=== PATIENT | female | born 1975 | race Caucasian/White ===

== ENCOUNTER → 2020-10-23 10:26 | Outpatient (BNVA) | payer OTHER, SELFPAY | PROVIDERS: PCP Hospitalist; Visit Provider Nurse Practitioner Psychiatric/Mental Health ==

== ENCOUNTER 2020-10-24 12:31 | Emergency (ER) | payer OTHER, SELFPAY ==
[2020-10-24 12:38] VITALS: BP 121/49; PULSE 74; RESP 20; TEMP 36.4; O2SAT 99; BMI 26.6
--- NOTE | 2020-10-24 14:37 | ED.PSYCH ---
HPI - Psych General Chief Complaint: ETOH/Substance Use Stated Complaint: crisis Time Seen by Provider: 10/24/20 14:24 Source: patient Mode of arrival: ambulatory Limitations: no limitations History of Present Illness HPI Narrative: 45-year-old female who presents emergency department fasting evaluation for anxiety and depression. Patient states that she has anxiety and depression for at least 20 years. She states that recently her depression and anxiety has gotten worse to the point where she wants to get help. She states that she has a history bingeing on crack cocaine and she believes that this is made her psychiatric conditions worse. She states that she used 400 dollars of crack cocaine yesterday from noon to will 9:00 p.m.. She states that 2 days prior she smoked marijuana. The patient states that she has been in 7 rehab and continues to struggle with sobriety. She states that she just got out of rehab 3 weeks ago. She denies being suicidal or homicidal. Related Data Allergies Allergy/AdvReac Type Severity Reaction Status Date / Time gabapentin Allergy Swelling Verified 10/24/20 14:36 Review of Systems Review of Systems: Yes all other systems are reviewed and are negative [facility] Past Medical History [facility] Narrative: Past medical history: Depression, anxiety, cocaine use disorder. surgical history: None social history: She smokes 1/2 pack of cigarettes per day times 30 years, she denies alcohol use, she binges on crack cocaine she last used 400 dollars of cocaine yesterday from noon to 9:00 p.m.. Social History Social History Use of substances other than those prescribed or required for medical reasons: Yes Substance Use Type: Crack/Cocaine Advance Directives: Yes Advance Directives Information Provided: Yes Advance Directives on File: No Physical Exam Vital Signs: Vital Signs: Last Vital Signs Temp 97.6 F 10/24/20 12:38 Pulse 74 10/24/20 12:38 Resp 18 10/24/20 15:50 BP 121/49 L 10/24/20 12:38 Pulse Ox 99 10/24/20 12:38 Body Mass Index 26.6 Const: General: cooperative and healthy appearing Orientation/consciousness: oriented to person and oriented to place Limitations: no limitations HENMT: Head: Yes normal to inspection, Yes normocephalic and Yes atraumatic Ears: external ears normal General nose exam: Normal external nose present Face and sinus: Yes normal facial exam Mouth: Normal oral and palatal mucosa present Throat: Yes posterior oropharynx normal Eyes: Periorbital: periorbital findings normal Eyelids: Yes eyelids normal Conjunctivae: conjunctivae normal Sclerae: sclerae normal Corneas: corneas normal Pupils: Equal, round and reactive pupils present Direct Ophthalmoscopy: normal light reflex Neck: Neck: Yes full ROM, Yes no lymphadenopathy, Yes no meningeal signs, Yes trachea midline and Yes supple Chest: Chest palpation & inspection: normal inspection of the chest and normal palpation of entire chest wall Resp: Effort & Inspection: normal respiratory effort and able to speak in complete sentences Auscultation: clear to auscultation bilaterally Cardio: Rate: regular rate Rhythm: regular rhythm Heart sounds: S1 normal heart sound present, S2 normal heart sound present and no murmurs GI: Inspection: Yes normal to inspection Palpation (GI): Soft to palpation, nontender, no guarding, not rigid and No hepatosplenomegaly present : General: Yes no CVA tenderness Back/Spine/Pelvis: Back: no CVA tenderness Cervical Spine: normal cervical lordosis Thoracic/Lumbar Spine: thoracic and lumbar spine normal to inspection Skin: Lesions: no lesions Rashes: no rashes Wounds: no wounds Neuro: General: oriented to person, oriented to place and no meningeal signs Cranial nerves: Yes CN's II-XII intact bilaterally and Yes Equal, round and reactive pupils present Cognition (Neuro): normal cognition Motor exam (neuro): 5/5 motor strength present throughout Extrem: General: Yes normal to inspection and Yes full ROM Psych: Appearance: well kempt Mental Status: mental status grossly normal Speech and movement: Normal speech and movement present Affect: Anxious affect present Attitude: cooperative Thought process: Normal thought process present Thought content: Normal thought content present Course Course Course Narrative: 45-year-old female with a history of depression, anxiety and cocaine use disorder who presents emergency department for evaluation of depression anxiety. The patient last used crack cocaine yesterday from noon until 9:00 p.m.. She denies being suicidal. Vital signs were unremarkable. Physical examination was unremarkable. I did order laboratory evaluation includes CBC CMP, alcohol level, drug screen, and urine test. The patient was given Ativan 2 mg orally for her anxiety. was unremarkable. 1620 : The patient's laboratory evaluation was unremarkable. Urine tox screen was positive for cocaine and marijuana. The patient was evaluated by our care team and the care team his given the patient outpatient options for partial outpatient care /dual diagnosis care. The patient is not homicidal or suicidal and is safe to be discharged. The patient was given verbal and printed instructions prior to discharge. The patient was advised to follow-up with their PCP in 2 days and to return to the emergency department if their symptoms get worse or if they develop any new symptoms that are concerning to them MDM - Psych Lab Data Result diagrams: 10/24/20 15:14 10/24/20 15:14 Labs: Lab Results 10/24/20 10/24/20 10/24/20 Range/Units 15:14 15:14 15:14 WBC 10.4 (4.8-10.8) X10*3/uL RBC 4.96 (4.20-5.50) X10*6/uL Hgb 14.6 (12.0-16.0) g/dl Hct 42.8 (37-47) % MCV 86.3 (80-98) fL MCH 29.4 (27.0-33.0) pg MCHC 34.1 (31.0-35.0) g/dl RDW 12.8 (11.0-16.0) % Plt Count 346 (160-400) X10*3/uL MPV 8.5 L (9.4-12.3) fL Immature Gran % (Auto) 0.3 (0.0-0.4) % Neut % (Auto) 56.6 (45-73) % Lymph % (Auto) 33.8 (20-40) % [place] % (Auto) 6.5 (2-11) % Eos % (Auto) 2.1 (0-4) % Baso % (Auto) 0.7 (0-2) % Lymph # (Auto) 3.5 (1.2-4.9) X10*3/uL [place] # (Auto) 0.7 (0.1-1.2) X10*3/uL Eos # (Auto) 0.2 (0.0-0.4) X10*3/uL Baso # (Auto) 0.1 (0.0-0.2) X10*3/uL Abs Immat Gran (auto) 0.03 (0.00-0.03) X10*3/uL Absolute Neuts (auto) 5.9 (2.0-8.3) X10*3/uL Absolute Nucleated RBC 0.000 (0.0-0.012) X10*3/uL Nucleated RBC % (auto) 0.0 (0.0-0.2) /100WBC Sodium 137 (135-145) mmol/L Potassium 5.0 (3.3-5.1) mmol/L Chloride 107 (96-108) mmol/L Carbon Dioxide 19 L (22-29) mmol/L Anion Gap 16 (12-20) BUN 13 (9-16) mg/dL Creatinine 0.91 (0.5-1.4) mg/dL Estim Creat Clear Calc 75.1 Estimated GFR > 60 Random Glucose 106 (60-115) mg/dL Calcium 9.3 (8.4-10.2) mg/dL Total Bilirubin 0.4 (0.0-1.0) mg/dL AST 14 (5-31) U/L ALT 19 (0-31) U/L Alkaline Phosphatase 83 (39-117) U/L Total Protein 7.5 (6.5-8.0) g/dL Albumin 4.5 (3.5-5.0) g/dL Urine Opiates Screen Not Detected (Not Detect) Ur Barbiturates Screen Not Detected (Not Detect) Ur Phencyclidine Scrn Not Detected (Not Detect) Ur Amphetamines Screen Not Detected (Not Detect) U Benzodiazepines Scrn Not Detected (Not Detect) Urine Cocaine Screen POSITIVE H (Not Detect) U Marijuana (THC) Screen POSITIVE H (Not Detect) Ethyl Alcohol mg/dL 10/24/20 Range/Units 15:14 WBC (4.8-10.8) X10*3/uL RBC (4.20-5.50) X10*6/uL Hgb (12.0-16.0) g/dl Hct (37-47) % MCV (80-98) fL MCH (27.0-33.0) pg MCHC (31.0-35.0) g/dl RDW (11.0-16.0) % Plt Count (160-400) X10*3/uL MPV (9.4-12.3) fL Immature Gran % (Auto) (0.0-0.4) % Neut % (Auto) (45-73) % Lymph % (Auto) (20-40) % [place] % (Auto) (2-11) % Eos % (Auto) (0-4) % Baso % (Auto) (0-2) % Lymph # (Auto) (1.2-4.9) X10*3/uL [place] # (Auto) (0.1-1.2) X10*3/uL Eos # (Auto) (0.0-0.4) X10*3/uL Baso # (Auto) (0.0-0.2) X10*3/uL Abs Immat Gran (auto) (0.00-0.03) X10*3/uL Absolute Neuts (auto) (2.0-8.3) X10*3/uL Absolute Nucleated RBC (0.0-0.012) X10*3/uL Nucleated RBC % (auto) (0.0-0.2) /100WBC Sodium (135-145) mmol/L Potassium (3.3-5.1) mmol/L Chloride (96-108) mmol/L Carbon Dioxide (22-29) mmol/L Anion Gap (12-20) BUN (9-16) mg/dL Creatinine (0.5-1.4) mg/dL Estim Creat Clear Calc Estimated GFR Random Glucose (60-115) mg/dL Calcium (8.4-10.2) mg/dL Total Bilirubin (0.0-1.0) mg/dL AST (5-31) U/L ALT (0-31) U/L Alkaline Phosphatase (39-117) U/L Total Protein (6.5-8.0) g/dL Albumin (3.5-5.0) g/dL Urine Opiates Screen (Not Detect) Ur Barbiturates Screen (Not Detect) Ur Phencyclidine Scrn (Not Detect) Ur Amphetamines Screen (Not Detect) U Benzodiazepines Scrn (Not Detect) Urine Cocaine Screen (Not Detect) U Marijuana (THC) Screen (Not Detect) Ethyl Alcohol < 10 mg/dL Discharge Plan Discharge Clinical Impression: Cocaine use, Anxiety Depression Qualifiers: Depression Type: unspecified Qualified Code(s): F32.9 - Major depressive disorder, single episode, unspecified Patient Disposition: Home, Self-Care Additional Instructions: You were evaluated by our Care Team. You should consider getting into wanted partial out patient programs to help you with your cocaine use disorder, your depression and your anxiety. Follow-up with your doctor in 2 days. Please return to the emergency department if your symptoms get worse or if you develop any symptoms that are concerning to you.
[2020-10-24 15:23] LABS: MANUAL DIFF FLAG NO
[2020-10-24 15:26] LABS: Basophils Absolute Auto 0.1 X10*3/uL (0.0-0.2); Basophils Percent Auto 0.7 % (0-2); Eosinophils Absolute Auto 0.2 X10*3/uL (0.0-0.4); Eosinophils Percent Auto 2.1 % (0-4); Hematocrit 42.8 % (37-47); Hemoglobin 14.6 g/dl (12.0-16.0); Imm Gran Abs Auto 0.03 X10*3/uL (0.00-0.03); Imm Gran Pct Auto 0.3 % (0.0-0.4); Lymphocytes Absolute Auto 3.5 X10*3/uL (1.2-4.9); Lymphocytes Percent Auto 33.8 % (20-40); Mean Corpuscular HGB Conc 34.1 g/dl (31.0-35.0); Mean Corpuscular Hemoglobin 29.4 pg (27.0-33.0); Mean Corpuscular Volume 86.3 fL (80-98); Mean Platelet Volume 8.5 fL (9.4-12.3); Monocytes Absolute Auto 0.7 X10*3/uL (0.1-1.2); Monocytes Percent Auto 6.5 % (2-11); Neutrophils Absolute Auto 5.9 X10*3/uL (2.0-8.3); Neutrophils Percent Auto 56.6 % (45-73); Platelet Count 346 X10*3/uL (160-400); Red Blood Count 4.96 X10*6/uL (4.20-5.50); Red Cell Distribution Width 12.8 % (11.0-16.0); White Blood Count 10.4 X10*3/uL (4.8-10.8)
[2020-10-24 15:50] VITALS: RESP 18
[2020-10-24 15:51] LABS: Ethanol < 10 mg/dL
[2020-10-24 15:53] LABS: Alanine Aminotransferase 19 U/L (0-31); Albumin Level 4.5 g/dL (3.5-5.0); Alkaline Phosphatase 83 U/L (39-117); Anion Gap 16 (12-20); Aspartate Amino Transferase 14 U/L (5-31); Bilirubin Total 0.4 mg/dL (0.0-1.0); Blood Urea Nitrogen 13 mg/dL (9-16); Calcium 9.3 mg/dL (8.4-10.2); Carbon Dioxide 19 mmol/L (22-29); Chloride 107 mmol/L (96-108); Creatinine Clr Calc Pharmacy 75.1; Estimated Glomerular Filt Rate > 60; Glucose Random 106 mg/dL (60-115); Sodium 137 mmol/L (135-145); Total Protein 7.5 g/dL (6.5-8.0)
[2020-10-24 15:54] LABS: Amphetamine Screen Urine Not Detected (Not Detect); Barbiturates, Urine Not Detected (Not Detect); Benzodiazepines Screen Urine Not Detected (Not Detect); Cannabinoid Screen Urine POSITIVE (Not Detect); Cocaine Screen Urine POSITIVE (Not Detect); Opiate Screen Urine Not Detected (Not Detect); Phencyclidine Screen Urine Not Detected (Not Detect)
== END 2020-10-24 16:34 | disposition home or self-care (01) ==
PROVIDERS: Emergency Provider Emergency Medicine Emergency Medical Services; PCP Internal Medicine
DX: F41.9 Anxiety disorder, unspecified (principal); F32.9 Major depressive disorder, single episode, unspecified; F14.90 Cocaine use, unspecified, uncomplicated; F12.90 Cannabis use, unspecified, uncomplicated; F17.210 Nicotine dependence, cigarettes, uncomplicated
CPT/HCPCS: 36415; 80053; 80307; 82077; 85025; 99285

== ENCOUNTER 2020-10-27 16:22 | Inpatient (IN) | payer OTHER, SELFPAY ==
[2020-10-27 16:41] VITALS: BP 160/82; PULSE 56; RESP 16; TEMP 36; O2SAT 100; BMI 26.6
--- NOTE | 2020-10-27 18:17 | ED.ANXIETY ---
HPI - Anxiety General Chief Complaint: Anxiety <Claudia Diehl MD - Last Filed: 10/27/20 20:19> Stated Complaint: Depression <Claudia Diehl MD - Last Filed: 10/27/20 20:19> Time Seen by Provider: 10/27/20 18:16 <Claudia Diehl MD - Last Filed: 10/27/20 20:19> Source: patient <Claudia Diehl MD - Last Filed: 10/27/20 20:19> Mode of arrival: ambulatory <Claudia Diehl MD - Last Filed: 10/27/20 20:19> Limitations: no limitations <Claudia Deihl MD - Last Filed: 10/27/20 20:19> History of Present Illness HPI narrative: 45-year-old female with history of anxiety/depression ( chronic for at least 20 years), patient also has history of multiple substance abuse by smoking only, patient had multiple detoxification from drugs in the past but usually go back to drug abuse which make her psychiatric condition is worse, patient lives with her , decline any current plan for SI or HI. Patient admitted that she does not comply well with the rehab programs and do not attend the meetings. <Claudia Diehl MD - Last Filed: 10/27/20 20:19> Related Data Home Medications: Home Medications Medication Instructions Recorded Confirmed buspirone 1 tab PO BID 10/27/20 10/27/20 clonidine HCl 1 tab PO BID PRN 10/27/20 10/27/20 fluoxetine 2 cap PO QAM 10/27/20 10/27/20 hydroxyzine pamoate 50 mg PO TID 10/27/20 10/27/20 lorazepam 1 tab PO BID PRN 10/27/20 10/27/20 melatonin 10 mg PO BEDTIME PRN 10/27/20 10/27/20 naltrexone 1 tab PO QAM 10/27/20 10/27/20 olanzapine 10 mg PO BEDTIME 10/27/20 10/27/20 trazodone 1 - 2 tab PO BEDTIME PRN 10/27/20 10/27/20 <Claudia Diehl MD - Last Filed: 10/27/20 20:19> Allergies/Adverse Reactions: Allergies Allergy/AdvReac Type Severity Reaction Status Date / Time gabapentin Allergy Swelling Verified 10/24/20 14:36 <Claudia Diehl MD - Last Filed: 10/27/20 20:19> Review of Systems Review of Systems: All other systems are reviewed and are negative Constitutional: Reports as per HPI and Reports no additional constitutional complaints Eyes: Reports as per HPI and Reports no additional eye complaints Reports system reviewed and no additional complaints, except as documented Cardiovascular: Reports as per HPI and Reports no additional cardiovascular complaints Respiratory: Reports as per HPI and Reports no additional respiratory complaints Gastrointestinal: Reports as per HPI and Reports no additional gastrointestinal complaints Genitourinary: Reports no additional female genitourinary complaints Musculoskeletal: Reports no additional musculoskeletal complaints Skin/Breast: Reports system reviewed and no additional complaints, except as docu Psychiatric: Reports no additional psychiatric complaints Endocrine: Reports no additional endocrine complaints Hematologic/Lymphatic: Reports no additional hematologic/lymphatic complaints Allergic/Immunologic: Reports no additional allergic/immunologic complaints Reports system reviewed and no additional complaints, except as documented and Reports Abnormal speech present <Claudia Diehl MD - Last Filed: 10/27/20 20:19> [facility] Social History Social History: Social History Alcohol intake: never Patient Tobacco Use Status: Current everyday Tobacco user Use of substances other than those prescribed or required for medical reasons: Yes Substance Use Type: Crack/Cocaine and Marijuana Advance Directives: No Advance Directives Information Provided: No Guardian: No Patient : No <Claudia Diehl MD - Last Filed: 10/27/20 20:19> Physical Exam Vital Signs: Vital Signs: Last Vital Signs Temp 98.7 F 10/27/20 18:51 Pulse 66 10/27/20 21:29 Resp 18 10/27/20 21:29 BP 110/48 L 10/27/20 21:29 Pulse Ox 97 10/27/20 21:29 Body Mass Index 26.6 vital signs have been reviewed as appeared to be correct. Blood pressure normal. Heart rate normal. Respiration rate normal. Temperature normal. Oxygen saturation normal. <Claudia Diehl MD - Last Filed: 10/27/20 20:19> Vital Signs: Last Vital Signs Temp 98.7 F 10/27/20 18:51 Pulse 66 10/27/20 21:29 Resp 18 10/27/20 21:29 BP 110/48 L 10/27/20 21:29 Pulse Ox 97 10/27/20 21:29 Body Mass Index 26.6 <Carolee Mojicaie - Last Filed: 10/28/20 06:48> Appearance: Alert. Oriented X3. No acute distress. Head: Normal external exam. Normocephalic. Atraumatic. No Azul signs noted. No raccoon eyes noted Eyes: PERRLA. EOMI. Conjunctiva and sclera normal. Eyelids normal. ENT: TM's Normal. Pharynx normal. Uvula midline. Moist mucous membranes. No trismus noted. No drooling noted. No muffled voice noted. Neck: Normal inspection. Neck supple. FROM. No adenopathy. Thyroid Normal. No meningeal signs. No neck mass noted. CVS: Normal heart rate and rhythm. Heart sound normal. No murmurs noted. Pulses normal throughout. Respiratory: No respiratory distress. Painless inspiration. Breath sounds normal. No wheezes/rales/rhonchi noted. Chest nontender. No accessory muscle usage noted or decreased air movement noted. Abdomen: Soft and nontender. Bowel sounds normal in all 4 quadrants. No distention noted. No organomegaly noted. No visible injury noted. Back: No CVA tenderness. Full range of motion noted. Skin: Skin warm and dry. Normal skin color. Normal skin turgor. No rashes/lesions/lacerations noted. Extremities: No lower extremity edema. Extremities exhibit normal range of motion. Extremities nontender. Neuro: Oriented X 3. No motor deficit. No sensory deficit. Reflexes normal. Patient Appearance: Appropriate Patient Orientation: Person, Place, Time and Situation Level of Consciousness: Awake, Appropriate and Alert Patient Behavior: Talkative, Cooperative. Mood Description: Depressed. Affect Description: Flat. Patient Cognition Impaired: No Ability to Follow Directions: Good Speech Pattern: Spontaneous Speech Memory Description: Intact Hallucinations: Not present. Delusions: Not Present Thought Process: Logical. Thought Content: Unremarkable Depressive Symptoms: Increased anxiety. Judgement: Fair <Claudia Diehl MD - Last Filed: 10/27/20 20:19> Course Course Course Narrative: Assessment and plan. 45-year-old female history of anxiety / depression. Awaiting for complaint [facility] evaluation who came the patient on observation. <Claudia Diehl MD - Last Filed: 10/27/20 20:19> Physician observation continued. Patient with no acute events overnight, VS stable. Voluntary inpatient bed search. labs stable.. Patient resting comfortably, NAD, lungs clear, CV RRR, Neuro intact. Pending placement. THIS NOTE IS WRITTEN IN ADDENDUM 648am 10/28/20 <Carolee Gaines DO - Last Filed: 10/28/20 06:48> Reevaluation(s) Reevaluation #1: Physician observation started at 20:15 . Patient placed in physician observation because the patient needed more time for [facility] evaluation and and final disposition, patient's vital sign were stable, patient is alert and oriented , neuro exam unchanged, unremarkable rest of physical exam. <Claudia Diehl MD - Last Filed: 10/27/20 20:19> Time: 20:15 <Claudia Diehl MD - Last Filed: 10/27/20 20:19> MDM - Anxiety Lab Data Attestation: I reviewed the patient's lab results. <Claudia Diehl MD - Last Filed: 10/27/20 20:19> Labs: Lab Results 10/27/20 10/27/20 10/27/20 Range/Units 18:51 18:58 18:58 Urine Color YELLOW Urine Appearance CLEAR Urine pH 5.5 (5.0-8.0) Ur Specific [place] 1.010 (1.005-1.025) Urine Protein NEG (NEG-TRACE) MG/DL Urine Glucose (UA) NEG (NEG) MG/DL Urine Ketones NEG (NEG) MG/DL Urine Blood NEG (NEG) Urine Nitrite NEG (NEG) Ur Leukocyte Esterase NEG (NEG) Urine Test NEGATIVE (NEGATIVE) Urine Opiates Screen (Not Detect) Ur Barbiturates Screen (Not Detect) Ur Phencyclidine Scrn (Not Detect) Ur Amphetamines Screen (Not Detect) U Benzodiazepines Scrn (Not Detect) Urine Cocaine Screen (Not Detect) U Marijuana (THC) Screen (Not Detect) Ethyl Alcohol < 10 mg/dL COVID-19 (KIRSTIE) (Negative) COVID-19 Clin Com 10/27/20 10/28/20 Range/Units 18:58 00:27 Urine Color Urine Appearance Urine pH (5.0-8.0) Ur Specific [place] (1.005-1.025) Urine Protein (NEG-TRACE) MG/DL Urine Glucose (UA) (NEG) MG/DL Urine Ketones (NEG) MG/DL Urine Blood (NEG) Urine Nitrite (NEG) Ur Leukocyte Esterase (NEG) Urine Test (NEGATIVE) Urine Opiates Screen Not Detected (Not Detect) Ur Barbiturates Screen Not Detected (Not Detect) Ur Phencyclidine Scrn Not Detected (Not Detect) Ur Amphetamines Screen Not Detected (Not Detect) U Benzodiazepines Scrn Not Detected (Not Detect) Urine Cocaine Screen Not Detected (Not Detect) U Marijuana (THC) Screen POSITIVE H (Not Detect) Ethyl Alcohol mg/dL COVID-19 (KIRSTIE) Negative (Negative) COVID-Counselytics See Note <Claudia Diehl MD - Last Filed: 10/27/20 20:19> Lab Results 10/27/20 10/27/20 10/27/20 Range/Units 18:51 18:58 18:58 Urine Color YELLOW Urine Appearance CLEAR Urine pH 5.5 (5.0-8.0) Ur Specific [place] 1.010 (1.005-1.025) Urine Protein NEG (NEG-TRACE) MG/DL Urine Glucose (UA) NEG (NEG) MG/DL Urine Ketones NEG (NEG) MG/DL Urine Blood NEG (NEG) Urine Nitrite NEG (NEG) Ur Leukocyte Esterase NEG (NEG) Urine Test NEGATIVE (NEGATIVE) Urine Opiates Screen (Not Detect) Ur Barbiturates Screen (Not Detect) Ur Phencyclidine Scrn (Not Detect) Ur Amphetamines Screen (Not Detect) U Benzodiazepines Scrn (Not Detect) Urine Cocaine Screen (Not Detect) U Marijuana (THC) Screen (Not Detect) Ethyl Alcohol < 10 mg/dL COVID-19 (KIRSTIE) (Negative) COVID-Counselytics 10/27/20 10/28/20 Range/Units 18:58 00:27 Urine Color Urine Appearance Urine pH (5.0-8.0) Ur Specific [place] (1.005-1.025) Urine Protein (NEG-TRACE) MG/DL Urine Glucose (UA) (NEG) MG/DL Urine Ketones (NEG) MG/DL Urine Blood (NEG) Urine Nitrite (NEG) Ur Leukocyte Esterase (NEG) Urine Test (NEGATIVE) Urine Opiates Screen Not Detected (Not Detect) Ur Barbiturates Screen Not Detected (Not Detect) Ur Phencyclidine Scrn Not Detected (Not Detect) Ur Amphetamines Screen Not Detected (Not Detect) U Benzodiazepines Scrn Not Detected (Not Detect) Urine Cocaine Screen Not Detected (Not Detect) U Marijuana (THC) Screen POSITIVE H (Not Detect) Ethyl Alcohol mg/dL COVID-19 (KIRSTIE) Negative (Negative) COVID-19 Clin Com See Note <Carolee Gaines DO - Last Filed: 10/28/20 06:48> Discharge Plan Discharge Clinical Impression: Acute anxiety, Substance abuse <Claudia Diehl MD - Last Filed: 10/27/20 20:19> Prescriptions: No Action clonidine HCl 0.1 mg tablet 1 tab PO BID PRN (Reason: Blood Pressure) RF: 0 trazodone 50 mg tablet 1 - 2 tab PO BEDTIME PRN (Reason: Sleep) RF: 0 naltrexone 50 mg tablet 1 tab PO QAM RF: 0 lorazepam 1 mg tablet 1 tab PO BID PRN (Reason: Anxiety) RF: 0 fluoxetine 20 mg capsule 2 cap PO QAM RF: 0 olanzapine 20 mg tablet 10 mg PO BEDTIME RF: 0 buspirone 15 mg tablet 1 tab PO BID RF: 0 hydroxyzine pamoate 25 mg capsule 50 mg PO TID RF: 0 melatonin 10 mg Tablet 10 mg PO BEDTIME PRN (Reason: Sleep) RF: 0 <Claudia Diehl MD - Last Filed: 10/27/20 20:19>
[2020-10-27 18:51] VITALS: BP 107/56; PULSE 58; RESP 18; TEMP 37.1; O2SAT 99
[2020-10-27 19:10] LABS: Glucose Urine UA NEG (NEG); Leukocyte Esterase Urine NEG (NEG); Nitrite Urine NEG (NEG); PH 5.5 (5.0-8.0); Urine Blood NEG (NEG); Urine Ketones NEG (NEG); Urine Protein NEG (NEG-TRACE)
[2020-10-27 19:12] LABS: Appearance Urine CLEAR; Color Urine YELLOW; UPreg QC Valid YES; Urine Pregnancy NEGATIVE (NEGATIVE)
[2020-10-27 19:22] LABS: Ethanol < 10 mg/dL
[2020-10-27 19:34] LABS: Amphetamine Screen Urine Not Detected (Not Detect); Barbiturates, Urine Not Detected (Not Detect); Benzodiazepines Screen Urine Not Detected (Not Detect); Cannabinoid Screen Urine POSITIVE (Not Detect); Cocaine Screen Urine Not Detected (Not Detect); Opiate Screen Urine Not Detected (Not Detect); Phencyclidine Screen Urine Not Detected (Not Detect)
--- NOTE | 2020-10-27 20:11 | PC.NURSE ---
CARE team at bedside.
--- NOTE | 2020-10-27 20:43 | PC.NURSE ---
Pt changed over into hospital attire w/ security at bedside. Pt tearful but very cooperative. Offered and accepted sandwich, gingerale, and snack. Med rec completed w/ list provided by pt.
[2020-10-27] MEDS: traZODone HCL 50 MG TABLET PO (21:24)
[2020-10-27] MEDS: busPIRone HCl 5 MG TABLET 15 MG PO (21:25)
[2020-10-27] MEDS: hydrOXYzine HCL 25 MG TABLET 50 MG PO (21:25)
[2020-10-27] MEDS: Melatonin 3 MG TABLET 9 MG PO (21:26)
[2020-10-27] MEDS: OLANZapine 10 MG TABLET PO (21:26)
[2020-10-27] MEDS: LORazepam 1 MG TABLET PO (21:26)
[2020-10-27 21:29] VITALS: BP 110/48; PULSE 66; RESP 18; O2SAT 97
--- NOTE | 2020-10-27 21:43 | PC.NURSE ---
Pt family brought 2 bags of belongings. Placed in locker 10 w/ pts original belongings. Pt is calm, cooperative, pleasant. Given PM medications w/out difficulty.
--- NOTE | 2020-10-27 22:58 | MHC.CARE ---
CARE team evaluation completed by CARE team. Disposition is for voluntary inpatient psychiatric admission and is not considered an imminent risk requiring a Section 12a for containment at this time. Pt will remain in ED pending facility placement or change in disposition and plan of care. If pt requests to leave prior to placement, it is at the discretion of the ED physician whether pt may be discharged without CARE team re-assessment/consultation. Assessment is available for review in EMR.
[2020-10-28 00:52] LABS: COVID-19 Test Negative (Negative)
--- NOTE | 2020-10-28 07:00 | PC.NURSE ---
received report from Elder escalante pt is currently asleep
[2020-10-28] MEDS: busPIRone HCl 5 MG TABLET 15 MG PO ×2 (08:25→21:51)
[2020-10-28] MEDS: FLUoxetine HCl 20 MG CAPSULE 40 MG PO (08:25)
[2020-10-28] MEDS: hydrOXYzine HCL 25 MG TABLET 50 MG PO ×3 (08:25→21:51)
[2020-10-28 08:26] VITALS: BP 102/43; PULSE 68; RESP 18; O2SAT 100
--- NOTE | 2020-10-28 08:30 | PC.NURSE ---
pt given her breakfast and morning medications, pt denies si/hi at this time, calm and cooperative
[2020-10-28] MEDS: Naltrexone HCl 50 MG TABLET PO (08:41)
[2020-10-28 13:12] VITALS: BP 116/56; PULSE 72; RESP 16; O2SAT 98
--- NOTE | 2020-10-28 16:22 | PC.NURSE ---
called m5 to give report, not ready at this time awaiting a call back
--- NOTE | 2020-10-28 17:13 | PC.NURSE ---
Report given to psych. Requesting chemistry before transfer.
[2020-10-28 18:07] LABS: Alanine Aminotransferase 12 U/L (0-31); Albumin Level 3.9 g/dL (3.5-5.0); Alkaline Phosphatase 70 U/L (39-117); Anion Gap 15 (12-20); Aspartate Amino Transferase 13 U/L (5-31); Bilirubin Total 0.5 mg/dL (0.0-1.0); Blood Urea Nitrogen 14 mg/dL (9-16); Calcium 9.1 mg/dL (8.4-10.2); Carbon Dioxide 22 mmol/L (22-29); Chloride 107 mmol/L (96-108); Creatinine Clr Calc Pharmacy 78.5; Estimated Glomerular Filt Rate > 60; Glucose Random 86 mg/dL (60-115); Potassium 4.7 mmol/L (3.3-5.1); Sodium 139 mmol/L (135-145); Total Protein 6.6 g/dL (6.5-8.0)
[2020-10-28 20:00] VITALS: BP 111/58; PULSE 67; RESP 18; TEMP 36.1; O2SAT 98
[2020-10-28] MEDS: OLANZapine 10 MG TABLET PO (21:50)
[2020-10-28 21:51] VITALS: BP 111/58; PULSE 67
[2020-10-28] MEDS: cloNIDine HCL 0.1 MG TABLET PO (21:51)
[2020-10-28] MEDS: Melatonin 3 MG TABLET 9 MG PO (21:52)
[2020-10-28] MEDS: traZODone HCL 100 MG TABLET PO (21:52)
[2020-10-28] MEDS: LORazepam 1 MG TABLET PO (21:52)
--- NOTE | 2020-10-28 22:24 | PC.ADMIT ---
Pt is a 45 year old female who came into the ED for increased depression and anxiety, and reports recent relapse on crack cocaine 4 days ago, reports since then. UDS in the ED positive for THC. Pt was tearful upon admission, this is her first [facility] admission, but has previously participated in substance abuse treatment. Pt has a very close knit relationship with her family. Her daughter recently moved out of the family home and moved in her boyfriend. Her son is going into the in November. She lives at home with her , son, brother in law, and 's best friend. Pt denies SI/HI/VH/AH, and is able to contract for safety while on the unit. Pt is on a CV and 15 minute safety checks.
[2020-10-29] MEDS: Naltrexone HCl 50 MG TABLET PO (10:36)
[2020-10-29] MEDS: busPIRone HCl 5 MG TABLET 15 MG PO ×2 (10:36→20:30)
[2020-10-29] MEDS: FLUoxetine HCl 20 MG CAPSULE 40 MG PO (10:36)
[2020-10-29] MEDS: hydrOXYzine HCL 25 MG TABLET 50 MG PO ×3 (10:41→20:30)
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
--- NOTE | 2020-10-29 14:44 | PC.NURSE ---
Signed 3 day notice up on friday 11/03. DELMAR, Amy Funez, NATE notified.
[2020-10-29 18:00] VITALS: BP 108/51; PULSE 58; RESP 18; TEMP 36.6; O2SAT 100
[2020-10-29] MEDS: LORazepam 1 MG TABLET PO (20:29)
[2020-10-29] MEDS: Melatonin 3 MG TABLET 9 MG PO (20:30)
[2020-10-29] MEDS: traZODone HCL 50 MG TABLET PO (20:30)
[2020-10-29] MEDS: OLANZapine 10 MG TABLET PO (20:30)
[2020-10-30 06:45] VITALS: BP 108/49; PULSE 52; RESP 16; TEMP 36.3; O2SAT 96
[2020-10-30 07:00] VITALS: BMI 27.1
[2020-10-30] MEDS: FLUoxetine HCl 20 MG CAPSULE 40 MG PO (09:14)
[2020-10-30] MEDS: busPIRone HCl 5 MG TABLET 15 MG PO ×2 (09:14→20:19)
[2020-10-30] MEDS: Naltrexone HCl 50 MG TABLET PO (09:14)
[2020-10-30] MEDS: hydrOXYzine HCL 25 MG TABLET 50 MG PO (11:33)
[2020-10-30] MEDS: LORazepam 1 MG TABLET PO (11:33)
[2020-10-30 16:05] VITALS: BP 106/53; PULSE 63; TEMP 36.1
[2020-10-30] MEDS: Melatonin 3 MG TABLET 9 MG PO (20:19)
[2020-10-30] MEDS: OLANZapine 10 MG TABLET PO (20:19)
[2020-10-30] MEDS: traZODone HCL 50 MG TABLET PO (20:24)
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
[2020-10-31 06:00] VITALS: BP 103/53; PULSE 55; RESP 16; TEMP 36.6; O2SAT 97
[2020-10-31] MEDS: FLUoxetine HCl 20 MG CAPSULE 40 MG PO (09:02)
[2020-10-31] MEDS: Naltrexone HCl 50 MG TABLET PO (09:02)
[2020-10-31] MEDS: busPIRone HCl 5 MG TABLET 15 MG PO (09:02)
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
== END 2020-10-31 11:00 | disposition home or self-care (01) | DRG 885 ==
LOC: HO.ED 18:09 → HO.PM5 10-28 15:27
PROVIDERS: Student in an Organized Health Care Education/Training Program; Admitting Provider Psychiatry & Neurology Psychiatry; Emergency Provider Emergency Medicine; PCP Internal Medicine; Visit Provider Psychiatry & Neurology Psychiatry
DX: F33.1 Major depressive disorder, recurrent, moderate (principal); F43.12 Post-traumatic stress disorder, chronic; Z20.822 Contact with and (suspected) exposure to COVID-19; F10.21 Alcohol dependence, in remission; F14.10 Cocaine abuse, uncomplicated; F17.210 Nicotine dependence, cigarettes, uncomplicated; Z71.6 Tobacco abuse counseling; Z79.899 Other long term (current) drug therapy
CPT/HCPCS: 36415; 80053; 80307; 81003; 81025; 82077; 87635; 99285

== ENCOUNTER 2021-08-30 18:53 | Emergency (ER) | payer OTHER, SELFPAY ==
--- NOTE | ~2021-08-30 | XR_ITS ---
EXAMINATION: XR chest 2V CLINICAL INFORMATION: Reason for Exam cp COMPARISON: No prior chest x-ray available in our system for comparison at the time of this dictation. TECHNIQUE: XR chest 2V Lungs and Thu: Both lungs are clear. Pleura: Normal. Costophrenic angles are sharp. No pneumothorax. Heart: The heart is normal in size. Mediastinum: The mediastinum is within normal limits.. Bones: Skeletal structures included are normal for patient's age. XR/XR chest 2V IMPRESSION: Normal chest x-ray.
--- NOTE | 2021-08-30 19:03 | ECG_ITS ---
Test Reason : CP Blood Pressure : / mmHG Vent. Rate : 089 BPM Atrial Rate : 089 BPM P-R Int : 124 ms QRS Dur : 092 ms QT Int : 376 ms P-R-T Axes : 074 072 042 degrees QTc Int : 457 ms Poor data quality, interpretation may be adversely affected Normal sinus rhythm Normal ECG No previous ECGs available Referred By: Generic ED Physician Electronically Signed By:TERESA LAND MD
[2021-08-30 19:07] VITALS: BP 132/75; PULSE 83; RESP 19; TEMP 36.6; O2SAT 98; BMI 26.4
--- NOTE | 2021-08-30 19:44 | ED_ITS ---
HPI - Chest Pain General Chief Complaint: Chest Pain Stated Complaint: chest pains/fatigued Source: patient Mode of arrival: ambulatory Limitations: no limitations History of Present Illness HPI narrative: 46-year-old female presents with 3 weeks of right-sided chest pain and 1 day of nausea. Does not report shortness of breath, palpitations, dizziness or weakness. Denies fevers, chills, or any other concerning symptoms. MD complaint: chest pain Onset (ago): week(s) (3) Timing of current episode: episodic Prior episodes: Yes Onset: during rest Pain location: right chest Pain radiation: none Severity: moderate Pain scale (0-10): 6 Quality: tightness and aching Relieving factors: nothing Exacerbating factors: exertion, palpation and movement Associated symptoms: nausea Treatment prior to arrival: none Risk Factors Coronary artery disease risk factors: none Thoracic aortic dissection risk factors: none Related Data On Oral Contraceptives: No Home Medications Medication Instructions Recorded Confirmed buspirone 15 mg tablet 1 tab PO BID 10/27/20 10/27/20 clonidine HCl 0.1 mg tablet 1 tab PO BID PRN 10/27/20 10/27/20 fluoxetine 20 mg capsule 2 cap PO QAM 10/27/20 10/27/20 hydroxyzine pamoate 25 mg capsule 50 mg PO TID 10/27/20 10/27/20 lorazepam 1 mg tablet 1 tab PO BID PRN 10/27/20 10/27/20 melatonin 10 mg tablet 10 mg PO BEDTIME PRN 10/27/20 10/27/20 naltrexone 50 mg tablet 1 tab PO QAM 10/27/20 10/27/20 olanzapine 20 mg tablet 10 mg PO BEDTIME 10/27/20 10/27/20 trazodone 50 mg tablet 1 - 2 tab PO BEDTIME PRN 10/27/20 10/27/20 Previous Rx's Medication Instructions Recorded ibuprofen 600 mg tablet 600 mg PO Q6H PRN #30 tab 08/30/21 nitrofurantoin 100 mg PO Q12H 7 Days #14 cap 08/30/21 monohydrate/macrocrystals 100 mg capsule (Macrobid) Allergies Allergy/AdvReac Type Severity Reaction Status Date / Time gabapentin Allergy Swelling Verified 10/24/20 14:36 Review of Systems Review of Systems: Constitutional: No Fever, No Chills ENT/Mouth: No Ear Pain, No Hoarseness, No sore throat Eyes: No Eye Pain, No Swelling, No Redness, No Foreign Body Cardiovascular: No right chest wall Pain, No SOB Respiratory: No Cough, No Dyspnea Gastrointestinal: Positive Nausea, No Vomiting, No Diarrhea, No abdominal Pain Genitourinary: No Dysuria, No Hematuria Musculoskeletal: No joint pain, No Myalgias, No Joint Swelling Skin: No Skin lacerations, No rash Neuro: No Weakness, No Numbness, No Paresthesias, No Loss of Consciousness, No Dizziness, No Headache Psych: No Anxiety/Panic, No Depression Heme/Lymph: no easy bruising, no Lymphadenopathy Endocrine: No Polyuria, No Polydipsia Yes all other systems are reviewed and are negative [facility] Past Medical History Attestation statement: The following information was validated with the patient. Source: old records reviewed Medical History Chronic post-traumatic stress disorder (PTSD) Cocaine abuse MDD (major depressive disorder), recurrent episode, moderate Substance abuse Social History Social History Household Members: Significant Other and Family Household Members Other:: brother in law, niece, 's best friend Housing: House Do you presently have visiting nurse or other home services: No Alcohol intake: never Patient Tobacco Use Status: Current everyday Tobacco user Tobacco use type: Cigarette Cigarette Packs Per Day: 0.5 Cigarettes Per Day: 10.0 e-Cigarette/Vaping Use: Never Used Second Hand Smoke Exposure: Yes Substance Use Type: Crack/Cocaine and Marijuana Advance Directives: No Advance Directives Information Provided: No Patient : No service: No Sexual orientation: Straight/Heterosexual Physical Exam Vital Signs: Vital Signs: Last Vital Signs Temp 98.3 F 08/30/21 22:39 Pulse 77 08/30/21 22:39 Resp 18 08/30/21 22:39 BP 112/66 08/30/21 22:39 Pulse Ox 100 08/30/21 22:39 BMI result Body Mass Index 26.4 Appearance: Alert. Oriented X3. Mild distress. Eyes: Pupils equal, round and reactive to light. Sclera nonicteric. ENT: Pharynx normal. Moist mucous membranes. Neck: Normal inspection. Neck supple. No cervical lymphadenopathy. CVS: Normal heart rate and rhythm. Pulses normal. Reproducible chest pain noted to the right chest wall. Respiratory: No respiratory distress. Breath sounds normal. Abdomen: Soft and nontender. Skin: Skin warm and dry. Normal skin color. Normal skin turgor. Extremities: No lower extremity edema. Gait well balanced well coordinated. Neuro: No motor deficit. No sensory deficit. Cranial nerves 2-12 intact. Course Course Course Narrative: 46-year-old female presents with 3 weeks of right-sided chest pain and nausea that started today. Has been sober since June 26 after attending a detox facility for 40 days in [place]. Patient states to be doing very well with her sobriety. Does not report any physically strenuous activity, states that the pain worsens on exertion. Will order labs, chest x-ray and D-dimer. D-dimer negative. Labs are unremarkable. Urinalysis positive for UTI. Will treat with Macrobid. Patient verbalized understanding of and agrees to plan of care to discharge home. Verbalized understanding of signs and symptoms indicating need for emergent intervention MDM - Chest Pain Differential Diagnosis Differential diagnosis: Likely fracture of rib, pneumothorax, stable angina, unstable angina pectoris, st elevation myocardial infarction, costochondritis and chest pain Medical Records Data Attestation: I reviewed the patient's medical records. Lab Data Attestation: I reviewed the patient's lab results. Result diagrams: 08/30/21 20:36 08/30/21 20:36 Labs: Lab Results 08/30/21 08/30/21 08/30/21 Range/Units 20:36 20:36 20:36 WBC 11.4 H (4.8-10.8) X10*3/uL RBC 4.55 (4.20-5.50) X10*6/uL Hgb 13.4 (12.0-16.0) g/dl Hct 38.8 (37.0-47.0) % MCV 85.3 (80.0-98.0) fL MCH 29.5 (27.0-33.0) pg MCHC 34.5 (31.0-35.0) g/dl RDW 11.9 (11.0-16.0) % Plt Count 357 (160-400) X10*3/uL MPV 8.8 L (9.4-12.3) fL Immature Gran % (Auto) 0.3 (0.0-0.4) % Neut % (Auto) 52.5 (45-73) % Lymph % (Auto) 37.7 (20-40) % Garfield % (Auto) 6.8 (2-11) % Eos % (Auto) 1.9 (0-4) % Baso % (Auto) 0.8 (0-2) % Lymph # (Auto) 4.3 (1.2-4.9) X10*3/uL Garfield # (Auto) 0.8 (0.1-1.2) X10*3/uL Eos # (Auto) 0.2 (0.0-0.4) X10*3/uL Baso # (Auto) 0.1 (0.0-0.2) X10*3/uL Abs Immat Gran (auto) 0.03 (0.00-0.03) X10*3/uL Absolute Neuts (auto) 6.0 (2.0-8.3) x10*3/uL Absolute Nucleated RBC 0.000 (0.0-0.012) X10*3/uL Nucleated RBC % (auto) 0.0 (0.0-0.2) /100WBC D-Dimer High Sensitivty 171 NG/ML Sodium 138 (135-145) mmol/L Potassium 4.5 (3.3-5.1) mmol/L Chloride 109 H (96-108) mmol/L Carbon Dioxide 18 L (22-29) mmol/L Anion Gap 16 (12-20) BUN 13 (9-16) mg/dL Creatinine 0.85 (0.5-1.4) mg/dL Estim Creat Clear Calc 79.3 Estimated GFR > 60 Random Glucose 97 (60-115) mg/dL Calcium 9.3 (8.4-10.2) mg/dL Magnesium 1.9 (1.6-2.6) mg/dL Total Bilirubin 0.3 (0.0-1.0) mg/dL Direct Bilirubin < 0.2 (0.0-0.5) mg/dL AST 15 (5-31) U/L ALT 11 (0-31) U/L Alkaline Phosphatase 57 (39-117) U/L Troponin I High Sens (<3.5-17.0) ng/L Total Protein 7.4 (6.5-8.0) g/dL Albumin 4.5 (3.5-5.0) g/dL Lipase 16 (8-78) U/L Urine Color Urine Appearance Urine pH (5.0-8.0) Ur Specific Luckey (1.005-1.025) Urine Protein (NEG-TRACE) MG/DL Urine Glucose (UA) (NEG) MG/DL Urine Ketones (NEG) MG/DL Urine Blood (NEG) Urine Nitrite (NEG) Ur Leukocyte Esterase (NEG) Urine RBC (0) /HPF Urine WBC (0-4) /HPF Ur Squamous Epith Cells /LPF Urine Bacteria /LPF Urine Mucus /LPF 08/30/21 08/30/21 Range/Units 20:36 20:36 WBC (4.8-10.8) X10*3/uL RBC (4.20-5.50) X10*6/uL Hgb (12.0-16.0) g/dl Hct (37.0-47.0) % MCV (80.0-98.0) fL MCH (27.0-33.0) pg MCHC (31.0-35.0) g/dl RDW (11.0-16.0) % Plt Count (160-400) X10*3/uL MPV (9.4-12.3) fL Immature Gran % (Auto) (0.0-0.4) % Neut % (Auto) (45-73) % Lymph % (Auto) (20-40) % Garfield % (Auto) (2-11) % Eos % (Auto) (0-4) % Baso % (Auto) (0-2) % Lymph # (Auto) (1.2-4.9) X10*3/uL Garfield # (Auto) (0.1-1.2) X10*3/uL Eos # (Auto) (0.0-0.4) X10*3/uL Baso # (Auto) (0.0-0.2) X10*3/uL Abs Immat Gran (auto) (0.00-0.03) X10*3/uL Absolute Neuts (auto) (2.0-8.3) x10*3/uL Absolute Nucleated RBC (0.0-0.012) X10*3/uL Nucleated RBC % (auto) (0.0-0.2) /100WBC D-Dimer High Sensitivty NG/ML Sodium (135-145) mmol/L Potassium (3.3-5.1) mmol/L Chloride (96-108) mmol/L Carbon Dioxide (22-29) mmol/L Anion Gap (12-20) BUN (9-16) mg/dL Creatinine (0.5-1.4) mg/dL Estim Creat Clear Calc Estimated GFR Random Glucose (60-115) mg/dL Calcium (8.4-10.2) mg/dL Magnesium (1.6-2.6) mg/dL Total Bilirubin (0.0-1.0) mg/dL Direct Bilirubin (0.0-0.5) mg/dL AST (5-31) U/L ALT (0-31) U/L Alkaline Phosphatase (39-117) U/L Troponin I High Sens < 3.5 (<3.5-17.0) ng/L Total Protein (6.5-8.0) g/dL Albumin (3.5-5.0) g/dL Lipase (8-78) U/L Urine Color YELLOW Urine Appearance CLEAR Urine pH 6.0 (5.0-8.0) Ur Specific Luckey >= 1.030 H (1.005-1.025) Urine Protein NEG (NEG-TRACE) MG/DL Urine Glucose (UA) NEG (NEG) MG/DL Urine Ketones 5 (NEG) MG/DL Urine Blood NEG (NEG) Urine Nitrite NEG (NEG) Ur Leukocyte Esterase TRACE H (NEG) Urine RBC 0-2 (0) /HPF Urine WBC 1-4 (0-4) /HPF Ur Squamous Epith Cells 3+ /LPF Urine Bacteria 2+ /LPF Urine Mucus TRACE /LPF Imaging Data Chest x-ray: Attestation: I personally reviewed and interpreted this imaging study as follows: Radiologist's impression: EXAMINATION: XR chest 2V CLINICAL INFORMATION: Reason for Exam cp COMPARISON: No prior chest x-ray available in our system for comparison at the time of this dictation.? TECHNIQUE: XR chest 2V Lungs and Thu: Both lungs are clear. Pleura: Normal. Costophrenic angles are sharp. No pneumothorax. Heart: The heart is normal in size. Mediastinum: The mediastinum is within normal limits.. Bones: Skeletal structures included are normal for patient's age. XR/XR chest 2V IMPRESSION: Normal chest x-ray. ECG Data ECG #1: Attestation: I personally reviewed and interpreted this ECG as follows: ECG interpretation date: 08/30/21 ECG interpretation time: 19:01 Prior ECG tracings: not available for review Interpretation: Vent. rate 89 BPM OH interval 124 ms QRS duration 92 ms QT/QTc 376/457 ms P-R-T axes 74 72 42 Normal sinus rhythm Normal ECG No previous ECGs available Discharge Plan Discharge Clinical Impression: Non-cardiac chest pain, UTI (urinary tract infection), Musculoskeletal strain Patient Disposition: Home, Self-Care Instructions: Urinary Tract Infection in Women (DC), Noncardiac Chest Pain (ED), Chest Wall Pain (ED) Additional Instructions: You were evaluated for several weeks of chest pain. X-rays are negative for acute findings. EKG is normal sinus rhythm. Cardiac enzymes are negative. This is most likely I costochondritis or a muscular skeletal strain. Please alternate Tylenol 650 mg every 6 hours and Motrin 600 mg every 6 hours as needed for pain management. Please write down what time you take these medications to prevent accidental overdose. Do not exceed 3000 mg of Tylenol on a daily basis. You have a urinary tract infection. Please take Macrobid twice a day for the next 7 days. Drink plenty of fluids. Patient verbalized understanding of and agrees to plan of care to discharge home. Verbalized understanding of signs and symptoms indicating need for emergent intervention Prescriptions: New nitrofurantoin monohyd/m-cryst [Macrobid] 100 mg capsule 100 mg PO Q12H 7 Days Qty: 14 0RF Rx Instructions: must administer with a meal/food ibuprofen 600 mg tablet 600 mg PO Q6H PRN (Reason: fever or pain) Qty: 30 0RF No Action clonidine HCl 0.1 mg tablet 1 tab PO BID PRN (Reason: Blood Pressure) 0RF trazodone 50 mg tablet 1 - 2 tab PO BEDTIME PRN (Reason: Sleep) 0RF naltrexone 50 mg tablet 1 tab PO QAM 0RF lorazepam 1 mg tablet 1 tab PO BID PRN (Reason: Anxiety) 0RF fluoxetine 20 mg capsule 2 cap PO QAM 0RF olanzapine 20 mg tablet 10 mg PO BEDTIME 0RF buspirone 15 mg tablet 1 tab PO BID 0RF hydroxyzine pamoate 25 mg capsule 50 mg PO TID 0RF melatonin 10 mg Tablet 10 mg PO BEDTIME PRN (Reason: Sleep) 0RF Interventions: ED Discharge Assessment Last Done: 08/30/21 22:39 Discharge Date/Time: 08/30/21 22:45
[2021-08-30 20:40] LABS: MANUAL DIFF FLAG NO
[2021-08-30 20:42] LABS: Appearance Urine CLEAR; Basophils Absolute Auto 0.1 X10*3/uL (0.0-0.2); Basophils Percent Auto 0.8 % (0-2); Color Urine YELLOW; Eosinophils Absolute Auto 0.2 X10*3/uL (0.0-0.4); Eosinophils Percent Auto 1.9 % (0-4); Glucose Urine UA NEG (NEG); Hematocrit 38.8 % (37.0-47.0); Hemoglobin 13.4 g/dl (12.0-16.0); Imm Gran Abs Auto 0.03 X10*3/uL (0.00-0.03); Imm Gran Pct Auto 0.3 % (0.0-0.4); Leukocyte Esterase Urine TRACE (NEG); Lymphocytes Absolute Auto 4.3 X10*3/uL (1.2-4.9); Lymphocytes Percent Auto 37.7 % (20-40); Mean Corpuscular HGB Conc 34.5 g/dl (31.0-35.0); Mean Corpuscular Hemoglobin 29.5 pg (27.0-33.0); Mean Corpuscular Volume 85.3 fL (80.0-98.0); Mean Platelet Volume 8.8 fL (9.4-12.3); Monocytes Absolute Auto 0.8 X10*3/uL (0.1-1.2); Monocytes Percent Auto 6.8 % (2-11); Neutrophils Percent Auto 52.5 % (45-73); Nitrite Urine NEG (NEG); Platelet Count 357 X10*3/uL (160-400); Red Blood Count 4.55 X10*6/uL (4.20-5.50); Red Cell Distribution Width 11.9 % (11.0-16.0); Specific Gravity - Urine >= 1.030 (1.005-1.025); Urine Blood NEG (NEG); Urine Ketones 5 MG/DL (NEG); Urine Protein NEG (NEG-TRACE); White Blood Count 11.4 X10*3/uL (4.8-10.8)
[2021-08-30 20:50] LABS: D Dimer High Sensitivity 171 NG/ML
[2021-08-30 20:57] LABS: Bacteria Urine 2+ /LPF; Mucus Urine TRACE /LPF; RBC Urine 0-2 /HPF (0); Squamous Epithelial Cell Urine 3+ /LPF
[2021-08-30 21:00] LABS: Alanine Aminotransferase 11 U/L (0-31); Albumin Level 4.5 g/dL (3.5-5.0); Alkaline Phosphatase 57 U/L (39-117); Anion Gap 16 (12-20); Aspartate Amino Transferase 15 U/L (5-31); Bilirubin Direct < 0.2 mg/dL (0.0-0.5); Bilirubin Total 0.3 mg/dL (0.0-1.0); Blood Urea Nitrogen 13 mg/dL (9-16); Calcium 9.3 mg/dL (8.4-10.2); Carbon Dioxide 18 mmol/L (22-29); Chloride 109 mmol/L (96-108); Creatinine Clr Calc Pharmacy 79.3; Estimated Glomerular Filt Rate > 60; Glucose Random 97 mg/dL (60-115); Lipase 16 U/L (8-78); Magnesium 1.9 mg/dL (1.6-2.6); Potassium 4.5 mmol/L (3.3-5.1); Sodium 138 mmol/L (135-145); Total Protein 7.4 g/dL (6.5-8.0)
[2021-08-30 21:01] LABS: Troponin-I High Sensitivity < 3.5 ng/L (<3.5-17.0)
[2021-08-30 21:59] VITALS: BP 116/60; PULSE 77; RESP 16; O2SAT 99
[2021-08-30] MEDS: Ibuprofen 600 MG TABLET PO (22:27)
[2021-08-30] MEDS: Nitrofurantoin Monohyd/M-Cryst 100 MG CAPSULE PO (22:27)
[2021-08-30 22:39] VITALS: BP 112/66; PULSE 77; RESP 18; TEMP 36.8; O2SAT 100
== END 2021-08-30 22:45 | disposition home or self-care (01) ==
PROVIDERS: Nurse Practitioner Family; Emergency Provider Emergency Medicine; PCP Internal Medicine
DX: R07.89 Other chest pain (principal); N39.0 Urinary tract infection, site not specified; R53.83 Other fatigue; R00.2 Palpitations; M79.10 Myalgia, unspecified site; Z79.899 Other long term (current) drug therapy; F17.210 Nicotine dependence, cigarettes, uncomplicated; Z71.6 Tobacco abuse counseling
CPT/HCPCS: 36415; 71046; 80048; 80076; 81001; 83690; 83735; 84484; 85025; 85379; 93005; 99283; 99284

== ENCOUNTER 2023-07-11 17:26 | Emergency (ER) | payer OTHER, SELFPAY ==
[2023-07-11 17:39] VITALS: BP 124/72; BP 133/78; PULSE 102; PULSE 89; RESP 18; TEMP 36.7; O2SAT 95; O2SAT 99; BMI 25.4
[2023-07-11 19:03] LABS: Appearance Urine Clear; Color Urine Yellow; Glucose Urine UA Negative (Negative); Leukocyte Esterase Urine Negative (Negative); Nitrite Urine Negative (Negative); Specific Gravity - Urine <= 1.005 (1.005-1.025); Urine Blood Negative (Negative); Urine Ketones Trace mg/dL (Negative); Urine Protein Negative (Neg-Trace)
[2023-07-11 19:11] LABS: Amphetamine Screen Urine Not Detected (Not Detect); Barbiturates, Urine Not Detected (Not Detect); Benzodiazepines Screen Urine Not Detected (Not Detect); Cannabinoid Screen Urine POSITIVE (Not Detect); Cocaine Screen Urine Not Detected (Not Detect); Fentanyl, urine Not Detected (Not Detect); Opiate Screen Urine Not Detected (Not Detect); Phencyclidine Screen Urine Not Detected (Not Detect); UPreg QC Valid YES; Urine Pregnancy NEGATIVE (NEGATIVE)
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
--- NOTE | 2023-07-11 19:47 | PC.NURSE ---
client appears to remain at rest at present, recently seen by provider and presently in process of obtaining labs.
[2023-07-11 20:07] LABS: MANUAL DIFF FLAG NO
[2023-07-11 20:08] LABS: Basophils Absolute Auto 0.1 X10*3/uL (0.0-0.2); Basophils Percent Auto 0.7 % (0-2); Eosinophils Absolute Auto 0.1 X10*3/uL (0.0-0.4); Eosinophils Percent Auto 1.1 % (0-4); Hematocrit 37.8 % (37.0-47.0); Hemoglobin 13.4 g/dl (12.0-16.0); Imm Gran Abs Auto 0.02 X10*3/uL (0.00-0.03); Imm Gran Pct Auto 0.2 % (0.0-0.4); Lymphocytes Absolute Auto 3.6 X10*3/uL (1.2-4.9); Lymphocytes Percent Auto 29.5 % (20-40); Mean Corpuscular HGB Conc 35.4 g/dl (31.0-35.0); Mean Corpuscular Hemoglobin 30.8 pg (27.0-33.0); Mean Corpuscular Volume 86.9 fL (80.0-98.0); Monocytes Absolute Auto 0.7 X10*3/uL (0.1-1.2); Monocytes Percent Auto 5.9 % (2-11); Neutrophils Absolute Auto 7.7 x10*3/uL (2.0-8.3); Neutrophils Percent Auto 62.6 % (45-73); Platelet Count 367 X10*3/uL (160-400); Red Blood Count 4.35 X10*6/uL (4.20-5.50); Red Cell Distribution Width 11.7 % (11.0-16.0); White Blood Count 12.3 X10*3/uL (4.8-10.8)
[2023-07-11 20:25] LABS: Alanine Aminotransferase 25 U/L (0-31); Albumin Level 4.5 g/dL (3.5-5.0); Alkaline Phosphatase 52 U/L (39-117); Anion Gap 12 (12-20); Aspartate Amino Transferase 21 U/L (5-31); Bilirubin Total 0.4 mg/dL (0.0-1.0); Blood Urea Nitrogen 8 mg/dL (9-16); Calcium 9.7 mg/dL (8.4-10.2); Carbon Dioxide 28 mmol/L (22-29); Chloride 106 mmol/L (96-108); Creatinine Clr Calc Pharmacy 62.7; Estimated Glomerular Filt Rate > 60; Ethanol < 10 mg/dL; Glucose Random 112 mg/dL (60-115); Potassium 3.8 mmol/L (3.3-5.1); Sodium 142 mmol/L (135-145); Total Protein 7.5 g/dL (6.5-8.0)
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
--- NOTE | 2023-07-11 23:06 | MHC.CARE ---
After speaking with the CARE fast food assistant restaurant manager, GUERA Smith, it was determined that the pt would stay the night in the ED and then be discharged in the morning. The pt has been calling the [facility] Hotline trying to see if they can help immediately. The pt is fully aware that she will be discharged in the morning and she is working on where to go.
--- NOTE | 2023-07-12 01:28 | PC.NURSE ---
client conveyed to clinician she believed she might have lice, t/w inspected patients scalp and found no nits or live insects present.
[2023-07-12 05:27] VITALS: BP 147/83; PULSE 118; RESP 17; TEMP 36.6; O2SAT 98
[2023-07-12 06:00] VITALS: BP 114/72; PULSE 80; RESP 16; TEMP 36.8; O2SAT 98
--- NOTE | 2023-07-12 07:15 | PC.NURSE ---
Assumed care of patient at 0700, patient appears to be in no apparent distress, ambulating independently around BH pod, respirations even and unlabored. Requesting to get her contacts out of her belongings. Continue plan of care for discharge this am as patient poses no immediate risk to self, denies SI/HI/AH.
[2023-07-12 08:43] VITALS: BP 123/88; PULSE 69; RESP 14; TEMP 36.8; O2SAT 98
== END 2023-07-12 08:49 | disposition home or self-care (01) ==
PROVIDERS: Physician Assistant; Emergency Provider Internal Medicine; PCP Nurse Practitioner Primary Care
DX: F43.12 Post-traumatic stress disorder, chronic (principal); F33.1 Major depressive disorder, recurrent, moderate; Z91.411 Personal history of adult psychological abuse
CPT/HCPCS: 36415; 80053; 80307; 81003; 81025; 85025; 99284